=== PATIENT | male | born 1980 | race Caucasian/White ===

== ENCOUNTER 2023-06-22 05:35 | Emergency (ER) | payer MEDICAID ==
[~2023-06-22] VITALS: Ht 180.3 cm; Wt 90.9 kg
[2023-06-22 05:49] VITALS: TEMP 98.6
[2023-06-22] MEDS: normal saline 1000ML IV soln IV ONE (08:36)
[2023-06-22 09:09] LABS: BILIRUBIN,URINE NEGATIVE (Neg); CLARITY,URINE CLEAR (Clear); COLOR,URINE YELLOW (Yellow); GLUCOSE, URINE NEGATIVE (Neg); KETONES,URINE 15 mg/dl (Neg); LEUKOCYTE ESTERASE ,URINE NEGATIVE (Neg); NITRITES, URINE NEGATIVE (Neg); OCCULT BLOOD,URINE NEGATIVE (Neg); PROTEIN,URINE NEGATIVE (Neg)
[2023-06-22 09:10] LABS: UA COLLECTION TYPE CLN CATCH MIDSTREAM
[2023-06-22 09:21] LABS: BASOPHILS % (AUTO) 0.6 % (0-1); EOSINOPHILS # (AUTO) 0.1 X10'3 (0-0.9); EOSINOPHILS % (AUTO) 0.8 % (0-6); HEMATOCRIT 43.2 % (42.0-52.0); HEMOGLOBIN 14.8 g/dl (14.0-17.9); LYMPHOCYTES # (AUTO) 2.4 X10'3 (1.1-4.8); LYMPHOCYTES % (AUTO) 31.9 % (21-51); MEAN CORPUSCULAR HEMOGLOBIN 32.8 PG (27.0-31.0); MEAN CORPUSCULAR HGB CONC 34.2 g/dL (33.0-36.5); MEAN CORPUSCULAR VOLUME 95.8 FL (78-98); MONOCYTES # (AUTO) 0.8 X10'3 (0-0.9); MONOCYTES % (AUTO) 10.2 % (2-12); NEUTROPHILS # (AUTO) 4.3 X10'3 (1.8-7.7); NEUTROPHILS % (AUTO) 56.5 % (42-75); PLATELET COUNT 230 X10'3 (140-440); RED BLOOD COUNT 4.51 X10'6 (4.70-6.10); RED CELL DISTRIBUTION WIDTH 13.1 % (11.5-14.5); WHITE BLOOD COUNT 7.6 X10'3 (4.5-11.0)
[2023-06-22 09:24] LABS: ALBUMIN 3.9 G/DL (3.4-5.0); ANION GAP 15 (8-16); BLOOD UREA NITROGEN 13 MG/DL (7-18); BUN/CREATININE RATIO 12.6 (10.0-20.0); CALCIUM 9.1 MG/DL (8.5-10.1); CHLORIDE 105 MMOL/L (99-107); CREATININE 1.03 MG/DL (0.60-1.10); GLUCOSE 97 MG/DL (70-104); MAGNESIUM 2.1 MG/DL (1.5-2.4); POTASSIUM 3.8 MMOL/L (3.5-5.1); SODIUM 140 MMOL/L (135-145); TOTAL CARBON DIOXIDE 19.9 MMOL/L (24-32); eCRCL 101 ML/MIN; eGFR 80 ML/MIN
[2023-06-22] MEDS: CefTRIAXone 2gm/D5W 50ml BAG 50 ML IV ONE (09:34)
[2023-06-22] MEDS ORDERED: AMOX-580 PO (14:12)
[2023-06-22] MEDS ORDERED: PRED20TA PO (14:12)
[2023-06-22] MEDS ORDERED: ALBU8HFA INH (14:12)
[2023-06-22 14:29] VITALS: BP 117/77; PULSE 90; RESP 18; O2SAT 97
== END 2023-06-22 19:02 | disposition home or self-care (01) ==
LOC: ER 05:36
DX: R05.9 Cough, unspecified (principal); Z20.822 Contact with and (suspected) exposure to COVID-19; J98.01 Acute bronchospasm; E86.0 Dehydration; Z88.8 Allergy status to other drugs, medicaments and biological substances; Z79.2 Long term (current) use of antibiotics; Z79.899 Other long term (current) drug therapy
CPT/HCPCS: 36415; 71045; 73564; 80048; 81003; 83605; 83735; 84145; 85025; 87040; 87502; 87503; 87811; 93005; 96361; 96365; 99285; J0696; J7030

== ENCOUNTER 2023-07-21 06:22 | Emergency (ER) | payer MEDICAID ==
[~2023-07-21] VITALS: Ht 177.8 cm; Wt 71.4 kg
[~2023-07-21 06:22] MED LIST: ALBU8HFA INH
[2023-07-21 06:24] VITALS: TEMP 96.6
[2023-07-21] MEDS: normal saline 1000ML IV soln IVB ONE (07:40)
[2023-07-21] MEDS: ondansetron/PF 4mg/2ml inj IV ONE (08:05)
[2023-07-21] MEDS: morphine 4 MG/ML inj SYRINge IV ONE (08:06)
[2023-07-21 08:21] LABS: BASOPHILS % (AUTO) 0.6 % (0-1); EOSINOPHILS # (AUTO) 0.1 X10'3 (0-0.9); EOSINOPHILS % (AUTO) 1.4 % (0-6); HEMATOCRIT 40.9 % (42.0-52.0); HEMOGLOBIN 13.9 g/dl (14.0-17.9); LYMPHOCYTES # (AUTO) 2.3 X10'3 (1.1-4.8); LYMPHOCYTES % (AUTO) 28.5 % (21-51); MEAN CORPUSCULAR HEMOGLOBIN 33.1 PG (27.0-31.0); MEAN CORPUSCULAR HGB CONC 33.9 g/dL (33.0-36.5); MEAN CORPUSCULAR VOLUME 97.4 FL (78-98); MEAN PLATELET VOLUME 8.2 FL (7.4-10.4); MONOCYTES # (AUTO) 0.6 X10'3 (0-0.9); MONOCYTES % (AUTO) 7.6 % (2-12); NEUTROPHILS # (AUTO) 4.9 X10'3 (1.8-7.7); NEUTROPHILS % (AUTO) 61.9 % (42-75); PLATELET COUNT 188 X10'3 (140-440); RED CELL DISTRIBUTION WIDTH 13.3 % (11.5-14.5)
[2023-07-21 08:29] LABS: ALBUMIN 3.7 G/DL (3.4-5.0); ANION GAP 8 (8-16); BLOOD UREA NITROGEN 9 MG/DL (7-18); BUN/CREATININE RATIO 12.2 (10.0-20.0); CALCIUM 8.2 MG/DL (8.5-10.1); CHLORIDE 106 MMOL/L (99-107); CREATININE 0.74 MG/DL (0.60-1.10); ETHANOL 78 MG/DL (<10); GLUCOSE 93 MG/DL (70-104); POTASSIUM 4.3 MMOL/L (3.5-5.1); SODIUM 142 MMOL/L (135-145); eCRCL 133 ML/MIN; eGFR > 90 ML/MIN
[2023-07-21 08:36] LABS: APTT 27 SECONDS (22-32); PROTHROMBIN TIME 10.1 SECONDS (9.0-12.0)
[2023-07-21 09:14] LABS: BILIRUBIN,URINE NEGATIVE (Neg); CLARITY,URINE CLEAR (Clear); COLOR,URINE YELLOW (Yellow); GLUCOSE, URINE NEGATIVE (Neg); KETONES,URINE 15 mg/dl (Neg); LEUKOCYTE ESTERASE ,URINE NEGATIVE (Neg); NITRITES, URINE NEGATIVE (Neg); OCCULT BLOOD,URINE NEGATIVE (Neg); PROTEIN,URINE 30 mg/dl (Neg); UROBILINOGEN,URINE 0.2 E.U/dL (0.2-1.0)
[2023-07-21 09:16] LABS: URINE AMPHETAMINE SCREEN NEGATIVE (Neg); URINE BARBITUATE SCREEN NEGATIVE (Neg); URINE BENZODIAZEPINES SCREEN NEGATIVE (Neg); URINE CANNABINOID SCREEN POSITIVE (Neg); URINE COCAINE SCREEN NEGATIVE (Neg); URINE METHADONE SCREEN NEGATIVE (Neg); URINE OPIATE SCREEN POSITIVE (Neg); URINE PHENCYCLIDINE SCREEN NEGATIVE (Neg)
[2023-07-21 09:27] LABS: UA COLLECTION TYPE NON-SPECIFIED
[2023-07-21 09:29] LABS: MUCUS STRANDS FEW /LPF (Neg); SQUAMOUS EPITHELIAL CELL,UR FEW /LPF (FEW)
[2023-07-21 09:31] LABS: BACTERIA,URINE FEW /HPF (Neg); RBC,URINE NONE SEEN /HPF (0-2)
[2023-07-21 09:45] VITALS: BP 100/67; PULSE 78; RESP 15; O2SAT 96
== END 2023-07-21 10:27 | disposition home or self-care (01) ==
LOC: ER 06:23
DX: R51.9 Headache, unspecified (principal); R79.1 Abnormal coagulation profile; Z88.8 Allergy status to other drugs, medicaments and biological substances; Z79.899 Other long term (current) drug therapy
CPT/HCPCS: 36415; 70450; 80048; 80305; 80320; 81001; 82140; 85025; 85610; 85730; 87088; 96361; 96374; 96375; 99285; J2270; J2405; J7030

== ENCOUNTER 2023-09-27 01:27 | Emergency (ER) | payer MEDICAID ==
[~2023-09-27] VITALS: Ht 180.3 cm; Wt 84.1 kg
[~2023-09-27 01:27] MED LIST changes: +ACET-3068 PO; -ALBU8HFA INH
[2023-09-27 01:40] VITALS: BP 137/80; PULSE 100; RESP 18; TEMP 98.6; O2SAT 97
== END 2023-09-27 02:18 | disposition home or self-care (01) ==
LOC: ER 01:28
DX: S01.01XD Laceration without foreign body of scalp, subsequent encounter (principal); Z79.1 Long term (current) use of non-steroidal anti-inflammatories (NSAID); Z59.00 Homelessness unspecified; Z56.0 Unemployment, unspecified; X58.XXXD Exposure to other specified factors, subsequent encounter
CPT/HCPCS: 99281

== ENCOUNTER 2023-10-02 18:11 | Emergency (ER) | payer MEDICAID ==
[~2023-10-02] VITALS: Ht 180.3 cm; Wt 84.1 kg
[2023-10-02 19:36] VITALS: BP 120/66; PULSE 80; RESP 16; TEMP 97; O2SAT 99
== END 2023-10-02 19:51 | disposition home or self-care (01) ==
LOC: ER 18:12
DX: S01.01XD Laceration without foreign body of scalp, subsequent encounter (principal); Z59.00 Homelessness unspecified; Z56.0 Unemployment, unspecified; X58.XXXD Exposure to other specified factors, subsequent encounter
CPT/HCPCS: 99281